=== PATIENT | female | born 1960 | race Caucasian/White ===

== ENCOUNTER 2024-07-18 10:25 | Day surgery (SDC) | payer MEDICARE, BC, SELFPAY ==
[2024-07-17 08:47] VITALS: BMI 27.7
[2024-07-18] VITALS (8 sets, daily range): BP systolic 126–142; BP diastolic 67–94; PULSE 51–81; RESP 12–21; TEMP 36.2–36.4; O2SAT 95–99
[2024-07-18] MEDS: fentaNYL CIT INJ 50 mCg/ML AMP 2ML IVP (11:53)
[2024-07-18] MEDS: MIDAZOLAM INJ 1 MG/ML VIAL 2 ML 2 MG IV (11:53)
--- NOTE | 2024-07-18 12:01 | EKG_ITS ---
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
--- NOTE | 2024-07-18 17:43 | ESOP_ITS ---
RE: BARBARA DODGE : 1960 DATE OF OPERATION: 07/18/2024 PROCEDURE PERFORMED: Electrical cardioversion of atrial fibrillation. INDICATIONS FOR PROCEDURE: The patient has a history of recently onset persistent atrial fibrillation and the patient continued to persist in atrial fibrillation in spite of antiarrhythmic therapy with amiodarone and anticoagulant therapy. The patient also has history of mitral regurgitation as well as chronic hypertension. DETAILS OF THE PROCEDURE: After explaining the procedure in detail to the patient and after obtaining a proper consent, the patient was given a total of 2 mg of intravenous Versed and 50 mcg of intravenous fentanyl as premedication. The electrical cardioversion was attempted using anterior-posterior approach and biphasic waveform and after proper synchronization, the patient had cardioversion attempted with 200 joules and the patient converted back into sinus rhythm with sinus bradycardia at a rate of 53 beats per minute. The patient tolerated the procedure very well without any complication. DT: 12:03:04 TT: 17:41:00 Ref: [id number] - TID: [id number]
== END 2024-07-18 13:05 | disposition home or self-care (01) ==
PROVIDERS: PCP Nurse Practitioner Family; Referring Provider Internal Medicine Cardiovascular Disease; Visit Provider Internal Medicine Cardiovascular Disease
PROC: 5A2204Z Restoration of Cardiac Rhythm, Single (ICD-10-PCS; CPT 92960; principal; 2024-07-18 11:30)
DX: I48.19 Other persistent atrial fibrillation (principal); M32.9 Systemic lupus erythematosus, unspecified; E78.5 Hyperlipidemia, unspecified; I10 Essential (primary) hypertension; I34.0 Nonrheumatic mitral (valve) insufficiency; Z79.01 Long term (current) use of anticoagulants; Z01.810 Encounter for preprocedural cardiovascular examination; G43.009 Migraine without aura, not intractable, without status migrainosus
CPT/HCPCS: 92960; 93005; J2250; J3010